=== PATIENT | male | born 1975 | race Two or more races ===

== ENCOUNTER 2022-01-13 08:00 | Emergency (ER) | payer OTHER ==
[~2022-01-13] VITALS: Ht 195.6 cm; Wt 101.6 kg
[2022-01-13] MEDS ORDERED: ROSUVASTATIN CA20 MG PO (08:14)
== END 2022-01-13 17:53 | disposition home or self-care (01) ==
LOC: ER 08:00
DX: K52.9 Noninfective gastroenteritis and colitis, unspecified (principal); A05.9 Bacterial foodborne intoxication, unspecified